=== PATIENT | male | born 1950 | race Caucasian/White ===

== ENCOUNTER 2018-04-16 12:08 | Inpatient (IN) | payer MEDICARE, OTHER ==
[~2018-04-16] VITALS: Ht 185.4 cm; Wt 88.8 kg
[2018-04-16] MEDS ORDERED: SODIUM CHLORIDE FLUSH 10ML SYR IVF ONE (13:00)
[2018-04-16] MEDS ORDERED: ASPI-496 PO (13:01)
[2018-04-16] MEDS ORDERED: ASPI-691 PO (13:01)
[2018-04-16] MEDS ORDERED: IBUP1TAB PO (13:01)
[2018-04-16] MEDS ORDERED: ACET325T14 PO (13:01)
[2018-04-16] MEDS ORDERED: IBUP-1484 PO (13:01)
[2018-04-16 13:03] LABS: BASOPHILS # (AUTO) 0.03 x10^3/uL (0-0.1); BASOPHILS % (AUTO) 0 % (0-1); EOSINOPHILS # (AUTO) 0.07 x10^3/uL (0-0.4); EOSINOPHILS % (AUTO) 1 % (1-7); LYMPHOCYTES # (AUTO) 1.47 x10^3/uL (1-3.4); LYMPHOCYTES % (AUTO) 17 % (22-44); MD NO; MEAN CORPUSCULAR HEMOGLOBIN 33.4 pg (27.5-34.5); MEAN CORPUSCULAR HGB CONC 34.6 g/dL (33.2-36.2); MEAN CORPUSCULAR VOLUME 96.7 fL (81-97); MEAN PLATELET VOLUME 8.7 fL (7.4-10.4); MONOCYTES # (AUTO) 0.45 x10^3/uL (0.2-0.8); MONOCYTES % (AUTO) 5 % (2-9); NEUTROPHILS % (AUTO) 76 % (42-75); PLATELET COUNT 148 x10^3/uL (130-400); RED BLOOD COUNT 5.62 x10^6/uL (4.38-5.82); RED CELL DISTRIBUTION WIDTH 12.9 % (9.4-14.8)
[2018-04-16 13:15] LABS: ANION GAP 7 mmol/L (5-15); CALCIUM 9.4 mg/dL (8.5-10.1); CHLORIDE 104 mmol/L (98-107)
[2018-04-16 13:21] LABS: ALANINE AMINOTRANSFERASE 41 U/L (12-78); ALKALINE PHOSPHATASE 74 U/L (45-117); BILIRUBIN,TOTAL 0.4 mg/dL (0.2-1.0); CREATININE 0.99 mg/dL (0.7-1.3); TOTAL PROTEIN 7.5 g/dL (6.4-8.2)
[2018-04-16 13:22] LABS: TROPONIN I 0.502 ng/mL (0.000-0.045)
[2018-04-16] MEDS ORDERED: ONDANSETRON ODT 4 MG PO ONE (13:30)
[2018-04-16] MEDS ORDERED: MORPHINE SULFATE 4 MG/ML, 1ML IVPush PRN (13:30)
[2018-04-16] MEDS: NICOTINE 14MG/24 HR PATCH.TD24 TD SCH (14:30)
[2018-04-16] MEDS ORDERED: NITROGLYCERIN 0.4 MG BOTTLE (25 TABS) SL PRN (14:30)
[2018-04-16] MEDS ORDERED: ENOXAPARIN 80 MG/0.8 ML SQ SCH (14:30)
[2018-04-16] MEDS ORDERED: ENOXAPARIN 80 MG/0.8 ML SQ ONE (14:30)
[2018-04-16] MEDS ORDERED: hydrALAzine 20 MG/ML, 1ML IVPush PRN (14:30)
[2018-04-16] MEDS ORDERED: DOCUSATE 100 MG CAPSULE PO PRN (14:30)
[2018-04-16] MEDS ORDERED: LABETALOL 5MG/ML, 20ML IVPush PRN (14:30)
[2018-04-16] MEDS ORDERED: ONDANSETRON 2MG/ML, 2ML IVPush PRN (14:30)
[2018-04-16] MEDS ORDERED: BISACODYL 10 MG SUPP PR PRN (14:30)
[2018-04-16] MEDS ORDERED: CAPTOPRIL 12.5 MG TABLET PO PRN (14:30)
[2018-04-16] MEDS ORDERED: LORazepam 2 MG/ML, 1ML IVPush PRN (14:30)
[2018-04-16] MEDS ORDERED: ONDANSETRON ODT 4 MG PO PRN (14:30)
[2018-04-16 14:52] VITALS: BP 168/97
[2018-04-16 15:17] LABS: HEMOGLOBIN A1C 5.9 % (4.2-6.3)
[2018-04-16] MEDS ORDERED: CAPTOPRIL 12.5 MG TABLET PO SCH (16:00)
[2018-04-16] MEDS ORDERED: HEPARIN 25,000 UNITS/500ML PMX 500 ML IV PRN (16:30)
[2018-04-16] MEDS ORDERED: HEPARIN 5,000 UNITS/ML, 1ML IV ONE (16:30)
[2018-04-16] MEDS ORDERED: HEPARIN 5,000 UNITS/ML, 1ML IV PRN (16:30)
[2018-04-16] MEDS: METOPROLOL TARTRATE 25 MG TABLET PO SCH (17:11)
[2018-04-16 19:22] LABS: FREE T4 (FREE THYROXINE) 0.88 ng/dL (0.76-1.46); TROPONIN I 0.715 ng/mL (0.000-0.045)
[2018-04-16] MEDS ORDERED: ENALAPRIL 5MG TABLET ONE ×2 (20:47→21:10)
[2018-04-16] MEDS: ENALAPRIL 10 MG TABLET PO SCH (21:00)
[2018-04-16] MEDS: ATORVASTATIN 40 MG TABLET PO SCH (21:07)
[2018-04-16] MEDS: FAMOTIDINE 20 MG TABLET PO SCH (21:07)
[2018-04-16] MEDS: ACETAMINOPHEN 325 MG TABLET PO PRN (21:07)
[2018-04-16] MEDS: HYDROcodone/APAP 5/325 TABLET PO PRN (22:55)
[2018-04-16 23:11] LABS: TROPONIN I 0.909 ng/mL (0.000-0.045)
[2018-04-17 01:20] VITALS: BP 124/82
[2018-04-17] MEDS: ZOLPIDEM 5MG TABLET PO PRN ×2 (01:26→22:48)
[2018-04-17 05:06] LABS: BASOPHILS # (AUTO) 0.04 x10^3/uL (0-0.1); BASOPHILS % (AUTO) 1 % (0-1); EOSINOPHILS # (AUTO) 0.23 x10^3/uL (0-0.4); EOSINOPHILS % (AUTO) 3 % (1-7); LYMPHOCYTES # (AUTO) 2.18 x10^3/uL (1-3.4); LYMPHOCYTES % (AUTO) 29 % (22-44); MD NO; MEAN CORPUSCULAR HEMOGLOBIN 32.6 pg (27.5-34.5); MEAN CORPUSCULAR HGB CONC 33.5 g/dL (33.2-36.2); MEAN CORPUSCULAR VOLUME 97.3 fL (81-97); MEAN PLATELET VOLUME 8.5 fL (7.4-10.4); MONOCYTES # (AUTO) 0.57 x10^3/uL (0.2-0.8); MONOCYTES % (AUTO) 8 % (2-9); NEUTROPHILS # (AUTO) 4.61 x10^3/uL (1.8-6.8); NEUTROPHILS % (AUTO) 60 % (42-75); PLATELET COUNT 133 x10^3/uL (130-400); RED BLOOD COUNT 5.35 x10^6/uL (4.38-5.82); RED CELL DISTRIBUTION WIDTH 12.7 % (9.4-14.8)
[2018-04-17 05:11] LABS: ANION GAP 6 mmol/L (5-15); CALCIUM 8.7 mg/dL (8.5-10.1); CHLORIDE 106 mmol/L (98-107); CHOLESTEROL, TOTAL 184 mg/dL (140-239); TRIGLYCERIDES 109 mg/dL (50-200); VLDL CHOLESTEROL 22 mg/dL (0-25)
[2018-04-17 05:26] LABS: CREATININE 0.96 mg/dL (0.7-1.3); HDL CHOL % 25 % (26-37); HDL CHOLESTEROL (DIRECT) 46 mg/dL (40-60); LDL CHOLESTEROL,CALCULATED 116 mg/dL (54-169); LDL/HDL RATIO 2.5 (0.5-3.0)
[2018-04-17] MEDS: METOPROLOL TARTRATE 25 MG TABLET PO SCH ×2 (06:16→17:17)
[2018-04-17] MEDS: ASPIRIN 325 MG TABLET EC PO SCH (06:16)
[2018-04-17 07:30] VITALS: BP 122/79
[2018-04-17] MEDS: FAMOTIDINE 20 MG TABLET PO SCH ×2 (08:29→19:58)
[2018-04-17] MEDS: THIAMINE 100MG TABLET PO SCH (08:29)
[2018-04-17] MEDS: FOLIC ACID 1 MG TABLET PO SCH (08:29)
[2018-04-17] MEDS: ENALAPRIL 10 MG TABLET PO SCH ×2 (08:30→19:58)
[2018-04-17 12:51] VITALS: BP 120/80
[2018-04-17] MEDS ORDERED: MIDAZOLAM 1 MG/ML, 5ML ONE (13:38)
[2018-04-17] MEDS ORDERED: FENTANYL PF 100 MCG/2ML ONE ×2 (13:38→14:41)
[2018-04-17] MEDS ORDERED: LIDOCAINE/PF 1%, 30ML ONE (13:58)
[2018-04-17] MEDS ORDERED: BIVALIRUDIN 250 MG ONE ×2 (14:14→15:07)
[2018-04-17] MEDS ORDERED: PRASUGREL 10 MG TABLET ONE (14:26)
[2018-04-17] MEDS: NICOTINE 14MG/24 HR PATCH.TD24 TD SCH (15:36)
[2018-04-17] MEDS ORDERED: BIVALIRUDIN 250 MG in DEXTROSE 5% 50 ML IV SCH (15:39)
[2018-04-17] MEDS ORDERED: SODIUM CHLORIDE 0.9% 1,000 ML IV SCH (15:39)
[2018-04-17 19:34] VITALS: BP 164/98
[2018-04-17] MEDS ORDERED: ENALAPRIL 5MG TABLET ONE (19:56)
[2018-04-17] MEDS: HYDROcodone/APAP 5/325 TABLET PO PRN ×2 (19:58→20:32)
[2018-04-17] MEDS: ATORVASTATIN 40 MG TABLET PO SCH (19:58)
[2018-04-17] MEDS: ACETAMINOPHEN 325 MG TABLET PO PRN (22:48)
[2018-04-18] MEDS: HYDROcodone/APAP 5/325 TABLET PO PRN (01:51)
[2018-04-18 02:00] VITALS: BP 154/93
[2018-04-18] MEDS: ASPIRIN 325 MG TABLET EC PO SCH (06:04)
[2018-04-18] MEDS: METOPROLOL TARTRATE 25 MG TABLET PO SCH ×2 (06:04→17:04)
[2018-04-18 06:16] LABS: BASOPHILS # (AUTO) 0.04 x10^3/uL (0-0.1); BASOPHILS % (AUTO) 0 % (0-1); EOSINOPHILS # (AUTO) 0.06 x10^3/uL (0-0.4); EOSINOPHILS % (AUTO) 1 % (1-7); LYMPHOCYTES # (AUTO) 1.19 x10^3/uL (1-3.4); LYMPHOCYTES % (AUTO) 10 % (22-44); MD NO; MEAN CORPUSCULAR HEMOGLOBIN 33.1 pg (27.5-34.5); MEAN CORPUSCULAR HGB CONC 34.6 g/dL (33.2-36.2); MEAN CORPUSCULAR VOLUME 95.7 fL (81-97); MEAN PLATELET VOLUME 8.5 fL (7.4-10.4); MONOCYTES # (AUTO) 0.81 x10^3/uL (0.2-0.8); MONOCYTES % (AUTO) 7 % (2-9); NEUTROPHILS # (AUTO) 9.81 x10^3/uL (1.8-6.8); NEUTROPHILS % (AUTO) 82 % (42-75); PLATELET COUNT 127 x10^3/uL (130-400); RED BLOOD COUNT 5.65 x10^6/uL (4.38-5.82); RED CELL DISTRIBUTION WIDTH 11.9 % (9.4-14.8)
[2018-04-18 06:17] LABS: ALBUMIN 3.7 g/dL (3.4-5.0); ANION GAP 7 mmol/L (5-15); CHLORIDE 105 mmol/L (98-107); CREATININE 1.02 mg/dL (0.7-1.3)
[2018-04-18 07:51] VITALS: BP 144/90
[2018-04-18] MEDS ORDERED: ENALAPRIL 5MG TABLET ONE ×2 (08:58→20:16)
[2018-04-18] MEDS: ENALAPRIL 10 MG TABLET PO SCH ×2 (09:01→20:30)
[2018-04-18] MEDS: FOLIC ACID 1 MG TABLET PO SCH (09:01)
[2018-04-18] MEDS: FAMOTIDINE 20 MG TABLET PO SCH ×2 (09:01→20:29)
[2018-04-18] MEDS: PRASUGREL 10 MG TABLET PO SCH (09:01)
[2018-04-18] MEDS: THIAMINE 100MG TABLET PO SCH (09:01)
[2018-04-18 09:17] LABS: BASOPHILS # (AUTO) 0.03 x10^3/uL (0-0.1); BASOPHILS % (AUTO) 0 % (0-1); EOSINOPHILS # (AUTO) 0.05 x10^3/uL (0-0.4); EOSINOPHILS % (AUTO) 0 % (1-7); LYMPHOCYTES # (AUTO) 1.32 x10^3/uL (1-3.4); LYMPHOCYTES % (AUTO) 11 % (22-44); MD NO; MEAN CORPUSCULAR HEMOGLOBIN 32.9 pg (27.5-34.5); MEAN CORPUSCULAR VOLUME 96.6 fL (81-97); MEAN PLATELET VOLUME 8.7 fL (7.4-10.4); MONOCYTES # (AUTO) 0.63 x10^3/uL (0.2-0.8); MONOCYTES % (AUTO) 5 % (2-9); NEUTROPHILS # (AUTO) 10.39 x10^3/uL (1.8-6.8); NEUTROPHILS % (AUTO) 84 % (42-75); PLATELET COUNT 145 x10^3/uL (130-400); RED BLOOD COUNT 5.67 x10^6/uL (4.38-5.82); RED CELL DISTRIBUTION WIDTH 12.6 % (9.4-14.8)
[2018-04-18 12:42] VITALS: BP 119/68
[2018-04-18] MEDS: NICOTINE 14MG/24 HR PATCH.TD24 TD SCH (13:56)
[2018-04-18 17:04] VITALS: BP 119/76
[2018-04-18 19:39] VITALS: BP 108/65
[2018-04-18] MEDS: ATORVASTATIN 40 MG TABLET PO SCH (20:29)
[2018-04-19 01:59] VITALS: BP 121/72
[2018-04-19 05:53] LABS: BASOPHILS # (AUTO) 0.02 x10^3/uL (0-0.1); BASOPHILS % (AUTO) 0 % (0-1); EOSINOPHILS % (AUTO) 1 % (1-7); LYMPHOCYTES # (AUTO) 1.53 x10^3/uL (1-3.4); LYMPHOCYTES % (AUTO) 14 % (22-44); MD NO; MEAN CORPUSCULAR HEMOGLOBIN 33.4 pg (27.5-34.5); MEAN CORPUSCULAR HGB CONC 34.5 g/dL (33.2-36.2); MEAN CORPUSCULAR VOLUME 96.7 fL (81-97); MONOCYTES # (AUTO) 0.97 x10^3/uL (0.2-0.8); MONOCYTES % (AUTO) 9 % (2-9); NEUTROPHILS # (AUTO) 8.17 x10^3/uL (1.8-6.8); NEUTROPHILS % (AUTO) 76 % (42-75); PLATELET COUNT 120 x10^3/uL (130-400); RED BLOOD COUNT 5.35 x10^6/uL (4.38-5.82); RED CELL DISTRIBUTION WIDTH 12.4 % (9.4-14.8)
[2018-04-19 06:01] LABS: ANION GAP 9 mmol/L (5-15); CALCIUM 9.1 mg/dL (8.5-10.1); CHLORIDE 105 mmol/L (98-107); CREATININE 1.05 mg/dL (0.7-1.3)
[2018-04-19] MEDS: ASPIRIN 325 MG TABLET EC PO SCH (06:11)
[2018-04-19] MEDS: METOPROLOL TARTRATE 25 MG TABLET PO SCH (06:12)
[2018-04-19 06:34] LABS: HCT (SEDRATE) 51.7 % (39.2-51.8)
[2018-04-19] MEDS: FAMOTIDINE 20 MG TABLET PO SCH (08:41)
[2018-04-19] MEDS: THIAMINE 100MG TABLET PO SCH (08:41)
[2018-04-19] MEDS: FOLIC ACID 1 MG TABLET PO SCH (08:41)
[2018-04-19] MEDS: PRASUGREL 10 MG TABLET PO SCH (08:41)
[2018-04-19] MEDS: ENALAPRIL 10 MG TABLET PO SCH (08:43)
[2018-04-19 08:44] VITALS: BP 107/65
[2018-04-19] MEDS ORDERED: FAMO20TA7 PO (10:19)
[2018-04-19] MEDS ORDERED: PRAS10TA4 PO (10:19)
[2018-04-19] MEDS ORDERED: ASPI-650 PO (10:19)
[2018-04-19] MEDS ORDERED: ENAL10TA PO (10:19)
[2018-04-19] MEDS ORDERED: FOLI-17 PO (10:19)
[2018-04-19] MEDS ORDERED: METO25TA35 PO (10:19)
[2018-04-19] MEDS ORDERED: ATOR40TA78 PO (10:19)
[2018-04-19] MEDS ORDERED: NICO-486 TD (10:19)
[2018-04-19] MEDS ORDERED: THIA100T67 PO (10:19)
== END 2018-04-19 11:38 | disposition home or self-care (01) | DRG 247 ==
LOC: ED 12:52 → EDIP 13:28 → 5SO 14:15 → DCLOUNGE 04-19 11:01
PROVIDERS: ADMIT Internal Medicine; ATTEND Internal Medicine
PROC: 027035Z Dilation of Coronary Artery, One Artery with Two Drug-eluting Intraluminal Devices, Percutaneous Approach (ICD-10-PCS; principal; 2018-04-17)
PROC: 4A023N7 Measurement of Cardiac Sampling and Pressure, Left Heart, Percutaneous Approach (ICD-10-PCS; 2018-04-17)
PROC: B2151ZZ Fluoroscopy of Left Heart using Low Osmolar Contrast (ICD-10-PCS; 2018-04-17)
PROC: B2131ZZ Fluoroscopy of Multiple Coronary Artery Bypass Grafts using Low Osmolar Contrast (ICD-10-PCS; 2018-04-17)
PROC: B2181ZZ Fluoroscopy of Left Internal Mammary Bypass Graft using Low Osmolar Contrast (ICD-10-PCS; 2018-04-17)
PROC: B2121ZZ Fluoroscopy of Single Coronary Artery Bypass Graft using Low Osmolar Contrast (ICD-10-PCS; 2018-04-17)
DX: I21.4 Non-ST elevation (NSTEMI) myocardial infarction (principal); I25.110 Atherosclerotic heart disease of native coronary artery with unstable angina pectoris; E78.5 Hyperlipidemia, unspecified; G89.29 Other chronic pain; I10 Essential (primary) hypertension; F17.210 Nicotine dependence, cigarettes, uncomplicated; M54.5 Low back pain; Z96.651 Presence of right artificial knee joint; Z79.82 Long term (current) use of aspirin; Z95.1 Presence of aortocoronary bypass graft; Z88.8 Allergy status to other drugs, medicaments and biological substances; Z79.899 Other long term (current) drug therapy; Z79.1 Long term (current) use of non-steroidal anti-inflammatories (NSAID); Z90.89 Acquired absence of other organs; Z87.81 Personal history of (healed) traumatic fracture
CPT/HCPCS: 36415; 71045; 71046; 80048; 80053; 80061; 82040; 83036; 83690; 84439; 84443; 84484; 85025; 85520; 85651; 86141; 93005; 93306; 93459; 99156; 99157; 99285; C1760; C1894; C9600; G0378; J0583; J1644; J1650; J2250; J3010; J3490; Q0162; C1725; C1769; C1874; C1887; J2060; Q9967

== ENCOUNTER → 2020-05-25 | Outpatient (CLI) | payer MEDICARE ==
[~2020-05-25] MED LIST: ACET325T14 PO; ASPI-496 PO; ASPI-650 PO; ASPI-691 PO; ATOR40TA78 PO; ENAL10TA9 PO; FAMO20TA7 PO; FOLI-17 PO; IBUP-1902 PO; IBUP1TAB PO; METO25TA35 PO; NICO-486 TD; PRAS10TA4 PO; THIA100T67 PO
== END | disposition home or self-care (01) ==
LOC: CFH 07:18
PROVIDERS: ATTEND Nurse Practitioner Family
DX: I08.8 Other rheumatic multiple valve diseases (principal); I25.10 Atherosclerotic heart disease of native coronary artery without angina pectoris; E78.5 Hyperlipidemia, unspecified; I25.2 Old myocardial infarction; Z95.1 Presence of aortocoronary bypass graft; Z87.891 Personal history of nicotine dependence
CPT/HCPCS: 93306; 93356